=== PATIENT | male | born 1945 | race Caucasian/White ===

== ENCOUNTER 2023-04-03 11:45 | Outpatient (CLI) | payer OTHER | END 2023-04-03 23:59 | disposition home or self-care (01) | LOC: CARD DIAG 11:45 | PROVIDERS: ATTEND Chiropractor | DX: I08.0 Rheumatic disorders of both mitral and aortic valves (principal); I25.9 Chronic ischemic heart disease, unspecified; E03.9 Hypothyroidism, unspecified; B54 Unspecified malaria | CPT/HCPCS: 36415; 84439; 84443; 84481; 93306 ==